=== PATIENT | male | born 1950 | race Caucasian/White ===

== ENCOUNTER 2021-01-06 17:23 | Outpatient (RCR) | payer MEDICARE, SELFPAY ==
[2021-01-06] MEDS: COVID-19 VACC, MRNA(PFIZER)/PF 30 MCG/0.3 ML SYRINGE IM (16:08)
[2021-01-27] MEDS: COVID-19 VACC, MRNA(PFIZER)/PF 30 MCG/0.3 ML SYRINGE IM (15:32)
== END 2021-04-12 23:59 ==
LOC: IMMUN 17:23
PROVIDERS: PCP Nurse Practitioner Family; Visit Provider Family Medicine
DX: Z23 Encounter for immunization (principal)
CPT/HCPCS: 0001A; 0002A; 91300